=== PATIENT | female | born 1985 | race Caucasian/White ===

== ENCOUNTER 2016-03-31 21:06 | Emergency (ER) ==
[2016-03-31 21:07] VITALS: BMI 20.7
[2016-03-31 21:12] VITALS: BP 171/77; TEMP 97.6
--- NOTE | 2016-03-31 21:12 | ED.PDOC ---
General ED Provider: Dr. SHAYY LLOYD-ER Chief Complaint: Tooth Problem Stated Complaint: my tooth is killing me Time Seen by Physician: 21:10 Mode of Arrival: Walk-In Information Source: Patient Primary Care Provider: OSMANI GARCIA Nursing and Triage Documentation Reviewed and Agree: Yes EENT Complaint Exam - Dental/Oral Complaint/Exam Mechanism of Injury: No known trauma Onset/Duration: 3 days Symptoms Are: Still present Timing: Constant Initial Severity: Mild Current Severity: Mild Location: upper left premolar Character: Reports: Dull, Aching Aggravating: Reports: Heat, Cold, Chewing Alleviating: Reports: None Associated Signs and Symptoms: Reports: Swelling, Discharge. Denies: Fever, Foul odor, Foul taste in mouth Related History: Reports: Similar episode, Previous tooth problem Dental/Oral Surgical History: Reports: None Tooth Findings: Present: Percussion tenderness, Gross decay, Gross caries, Abcess Cervical Lymphadenopathy Present: No Facial Swelling Present: No Bleeding Present: No Septal Hematoma: No Foreign Body Present: No Dysphagia Present: No Drooling Present: No Asymmetrical Tonsillar Swelling Present: No Uvula Midline: Yes Yady-tonsillar Fluctuence: No Trismus Present: No Palatal Petechiae Present: No Scarlatinaform Rash Present: No Differential Diagnoses: Dental Abcess, Dental Caries Review of Systems - Review Of Systems Constitutional: Reports: No symptoms Eyes: Reports: No symptoms Ears, Nose, Mouth, Throat: Reports: Mouth pain, Mouth swelling Respiratory: Reports: No symptoms Cardiac: Reports: No symptoms GI: Reports: No symptoms : Reports: No symptoms Musculoskeletal: Reports: No symptoms Skin: Reports: No symptoms Neurological: Reports: No symptoms Endocrine: Reports: No symptoms Hematologic/Lymphatic: Reports: No symptoms All Other Systems: Reviewed and Negative Past Medical History - Past Medical History Endocrine: Reports: Unknown Cardiovascular: Reports: Unknown Respiratory: Reports: Unknown Hematological: Reports: Unknown Gastrointestinal: Reports: Unknown Genitourinary: Reports: Unknown Neuro/Psych: Reports: Unknown Musculoskeletal: Reports: Unknown Cancer: Reports: Unknown - Surgical History General Surgical History: Reports: Unknown - Family History Family History: Reports: Unknown - Social History Smoking Status: Current every day smoker, Heavy tobacco smoker Hx Substance Use: No Alcohol Screening: None Lives: With family Physical Exam - Physical Exam Appearance: Well-appearing, No pain distress, Well-nourished Pain Distress: Mild Eyes: ALYSSA, EOMI, Conjunctiva clear ENT: Ears normal, Nose normal (noted left upper premolar with carious dentition and swelling of gums) Neck: Supple Respiratory: Airway patent, Breath sounds clear, Breath sounds equal, Respirations nonlabored Cardiovascular: RRR, Pulses normal, No rub, No murmur GI/: Soft, Nontender, No masses, Bowel sounds normal, No Organomegaly Musculoskeletal: Normal strength, ROM intact, No edema, No calf tenderness Skin: Warm Neurological: Sensation intact, Motor intact, Reflexes intact, Cranial nerves intact, Alert, Oriented Psychiatric: Affect appropriate, Mood appropriate Critical Care Note - Critical Care Note Total Time (mins): 0 Departure - Departure Time of Disposition: 21:12 Disposition: HOME SELF-CARE Discharge Problem: Dental abscess Instructions: Dental Abscess (ED) Condition: Good Pt referred to PMD for follow-up: Yes Additional Instructions: augmentin 875mg bid x 7days=--norco 5mg q 6hrs prn pain #10--f/u with dentist panda Allergies/Adverse Reactions: Allergies No Known Allergies Allergy (Verified 11/27/15 21:38) Home Medications: Ambulatory Orders 1 [No Reported Medications] 11/27/15 Disposition Discussed With: Patient, Family
== END 2016-03-31 21:22 | disposition home or self-care (01) ==
LOC: ED 21:06
DX: K04.7 Periapical abscess without sinus (principal); K02.7 Dental root caries; F17.210 Nicotine dependence, cigarettes, uncomplicated
CPT/HCPCS: 99282

== ENCOUNTER 2016-04-18 20:54 | Emergency (ER) ==
[2016-04-18 21:01] VITALS: BP 161/90; TEMP 98.1; BMI 21.1
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
== END 2016-04-18 22:05 | disposition home or self-care (01) ==
LOC: ED 20:54
DX: S16.1XXA Strain of muscle, fascia and tendon at neck level, initial encounter (principal); R51 Headache; V89.2XXA Person injured in unspecified motor-vehicle accident, traffic, initial encounter; F17.210 Nicotine dependence, cigarettes, uncomplicated
CPT/HCPCS: 99282